=== PATIENT | female | born 1940 | race Two or more races ===

== ENCOUNTER 2021-01-12 08:45 | Outpatient (CLI) | payer OTHER ==
[~2021-01-12 08:45] MED LIST: TENORMIN25 MG PO
== END 2021-01-12 09:06 | disposition home or self-care (01) ==
LOC: TOM 08:45
PROVIDERS: ATTEND Internal Medicine Gastroenterology
DX: K56.600 Partial intestinal obstruction, unspecified as to cause (principal)